=== PATIENT | female | born 1995 | race American Indian/Alaskan Native ===

== ENCOUNTER 2018-06-03 09:32 | Emergency (ER) | payer MEDICAID ==
[2018-06-03 09:42] VITALS: BP 123/66
[2018-06-03] MEDS ORDERED: IBUPROFEN PO ONE (10:09)
--- NOTE | 2018-06-03 10:38 | XRay Report ---
ROUTINE CHEST, TWO VIEWS: HISTORY: Cough. The trachea, heart, mediastinal contour, lung kaba and bony thorax are unremarkable. IMPRESSION: Unremarkable chest x-ray.
--- NOTE | 2018-06-03 10:47 | Emergency Department Report ---
Upper Respiratory HPI - HPI Chief Complaint: Upper Respiratory Infection Stated Complaint: FAUSTINO/HANDS NUMB/ Time Seen by Provider: 06/03/18 10:01 Duration: 1 Day URI Symptoms: Rhinorrhea: Yes, Sore Throat: No, Ear Pain: No, Cough: Yes, Shortness of Breath: No, Sick Contacts: No, Unable to Take Fluids: No, Urine Output Abnormal: No, Listless Behavior: No Other History: This is a 22-year-old female nontoxic, well nourished in appearance, no acute signs of distress presents to the ED with c/o of productive cough, fever, chills, body aches, rhinorrhea, nasal congestion x1 day. Patient describes productive cough as yellow mucus production. Patient agrees to sick contact with cousin which has the flu. Patient denies any recent travels, long car, recent hospital stays. Patient denies any calf pain or calf tenderness. Patient denies any chest pain, short of breath, nausea, vomiting, hemoptysis, numbness, tingling, headache or stiff neck. Patient denies any allergies or PMH. - Home Meds and Allergies Home Medications: Previous Rx's Medication Instructions Recorded Last Taken Type Cefdinir 300 mg PO Q12HR #20 capsule 04/16/14 Unknown Rx HYDROcodone/ACETAMINOPHEN 1 each PO Q4HR PRN #14 tablet 04/16/14 Unknown Rx [Hydrocodon-Acetaminophen 5-325] predniSONE [Prednisone] 40 mg PO DAILY #10 tablet 04/16/14 Unknown Rx HYDROcodone/APAP 5-325 [[place] 1 each PO Q8H PRN #10 tablet 11/16/14 Unknown Rx 5/325] Hydrocortisone 2.5% [Hytone 2.5% 1 applicatio TP TID #30 gm 11/16/14 Unknown Rx CREAM] cephALEXin [Keflex] 500 mg PO Q8H #21 capsule 11/16/14 Unknown Rx metroNIDAZOLE [Metrogel] 60 gm TP BID #1 gel..gram. 12/02/14 Unknown Rx Nitrofurantoin [place]/M-Cryst 100 mg PO Q12HR #14 capsule 12/15/14 Unknown Rx [Macrobid CAP] Pnv95/Ferrous Fumarate/FA 1 each PO QDAY #90 tablet 12/15/14 Unknown Rx [ Formula Tablet] Promethazine [Phenergan TAB] 25 mg PO Q6H PRN #30 tablet 12/15/14 Unknown Rx Vit-Fe Fumar-FA [ 1 tab PO QDAY #90 tablet 02/03/15 2 Days Ago Rx Vitamin] ~07/17/15 Promethazine [Phenergan TAB] 25 mg PO Q6HR PRN #20 tab 02/03/15 Unknown Rx cephALEXin [Keflex] 500 mg PO Q6HR #28 capsule 02/03/15 Unknown Rx metroNIDAZOLE 0.75%(NF) [Metrogel 1 applicatio TP QHS #5 tube 02/03/15 Unknown Rx 0.75% TOPICAL] Docusate Sodium [Colace] 100 mg PO DAILY #30 capsule 07/18/15 Unknown Rx Ferrous Sulfate [Feosol 325 MG tab] 325 mg PO BID #90 tablet 07/18/15 Unknown Rx Ibuprofen [Motrin 800 MG tab] 800 mg PO TID PRN #30 tablet 07/18/15 Unknown Rx Lidocain2.5%/Prilocai2.5% [Emla] 5 gm TP ONCE #1 tube 07/18/15 Unknown Rx oxyCODONE /ACETAMINOPHEN [Percocet 1 - 2 tab PO Q4HR PRN #30 tablet 07/18/15 Unknown Rx 5/325 mg] Ibuprofen [Motrin] 600 mg PO Q8H PRN #20 tablet 06/03/18 Unknown Rx Oseltamivir [Tamiflu] 75 mg PO BID #10 cap 06/03/18 Unknown Rx Allergies/Adverse Reactions: Allergies Allergy/AdvReac Type Severity Reaction Status Date / Time No Known Allergies Allergy Unverified 05/30/13 14:28 ED Review of Systems ROS: Stated complaint: FAUSTINO/HANDS NUMB/ Other details as noted in HPI Constitutional: chills, fever Eyes: denies: eye pain, eye discharge, vision change ENT: congestion. denies: ear pain, throat pain Respiratory: cough. denies: shortness of breath, wheezing Cardiovascular: denies: chest pain, palpitations Endocrine: no symptoms reported Gastrointestinal: denies: abdominal pain, nausea, diarrhea Genitourinary: denies: urgency, dysuria, discharge Musculoskeletal: denies: back pain, joint swelling, arthralgia Skin: denies: rash, lesions Neurological: denies: headache, weakness, paresthesias Psychiatric: denies: anxiety, depression Hematological/Lymphatic: denies: easy bleeding, easy bruising ED Past Medical Hx - Past Medical History Previous Medical History?: No Hx Hypertension: No Hx Congestive Heart Failure: No Hx Diabetes: No Hx Deep Vein Thrombosis: No Hx Renal Disease: No Hx Sickle Cell Disease: No Hx Seizures: No Hx Asthma: No Hx HIV: No - Surgical History Past Surgical History?: Yes Additional Surgical History: c-sectionx2 - Social History Smoking Status: Never Smoker Substance Use Type: None - Medications Home Medications: Home Medications Medication Instructions Recorded Confirmed Last Taken Type Cefdinir 300 mg PO Q12HR #20 capsule 04/16/14 07/19/15 Unknown Rx HYDROcodone/ACETAMINOPHEN 1 each PO Q4HR PRN #14 tablet 04/16/14 07/19/15 Unknown Rx [Hydrocodon-Acetaminophen 5-325] predniSONE [Prednisone] 40 mg PO DAILY #10 tablet 04/16/14 07/19/15 Unknown Rx HYDROcodone/APAP 5-325 [[place] 1 each PO Q8H PRN #10 tablet 11/16/14 07/19/15 Unknown Rx 5/325] Hydrocortisone 2.5% [Hytone 2.5% 1 applicatio TP TID #30 gm 11/16/14 07/19/15 Unknown Rx CREAM] cephALEXin [Keflex] 500 mg PO Q8H #21 capsule 11/16/14 07/19/15 Unknown Rx metroNIDAZOLE [Metrogel] 60 gm TP BID #1 gel..gram. 12/02/14 07/19/15 Unknown Rx Nitrofurantoin [place]/M-Cryst 100 mg PO Q12HR #14 capsule 12/15/14 07/19/15 Unknown Rx [Macrobid CAP] Pnv95/Ferrous Fumarate/FA 1 each PO QDAY #90 tablet 12/15/14 07/19/15 Unknown Rx [ Formula Tablet] Promethazine [Phenergan TAB] 25 mg PO Q6H PRN #30 tablet 12/15/14 07/19/15 Unknown Rx Vit-Fe Fumar-FA [ 1 tab PO QDAY #90 tablet 02/03/15 07/19/15 2 Days Ago Rx Vitamin] ~07/17/15 Promethazine [Phenergan TAB] 25 mg PO Q6HR PRN #20 tab 02/03/15 07/19/15 Unknown Rx cephALEXin [Keflex] 500 mg PO Q6HR #28 capsule 02/03/15 07/19/15 Unknown Rx metroNIDAZOLE 0.75%(NF) [Metrogel 1 applicatio TP QHS #5 tube 02/03/15 07/19/15 Unknown Rx 0.75% TOPICAL] Docusate Sodium [Colace] 100 mg PO DAILY #30 capsule 07/18/15 Unknown Rx Ferrous Sulfate [Feosol 325 MG tab] 325 mg PO BID #90 tablet 07/18/15 Unknown Rx Ibuprofen [Motrin 800 MG tab] 800 mg PO TID PRN #30 tablet 07/18/15 Unknown Rx Lidocain2.5%/Prilocai2.5% [Emla] 5 gm TP ONCE #1 tube 07/18/15 Unknown Rx oxyCODONE /ACETAMINOPHEN [Percocet 1 - 2 tab PO Q4HR PRN #30 tablet 07/18/15 Unknown Rx 5/325 mg] Ibuprofen [Motrin] 600 mg PO Q8H PRN #20 tablet 06/03/18 Unknown Rx Oseltamivir [Tamiflu] 75 mg PO BID #10 cap 06/03/18 Unknown Rx ED Bronchiolitis Physical Exam - Exam General: Vital signs noted. No distress. Alert and acting appropriately. Neurologic: Alert and oriented, no deficits. Musculoskeletal: Unremarkable. ED Bronchiolitis Tests - Testing Testing: CXR: Normal/Negative ED Physical Exam - General Limitations: No Limitations General appearance: alert, in no apparent distress - Head Head exam: Present: atraumatic, normocephalic - Eye Eye exam: Present: normal appearance - ENT ENT exam: Present: normal exam, normal orophraynx - Neck Neck exam: Present: normal inspection, full ROM. Absent: tenderness, meningismus, lymphadenopathy - Respiratory Respiratory exam: Present: normal lung sounds bilaterally. Absent: respiratory distress, wheezes, rales, rhonchi, stridor, chest wall tenderness, accessory muscle use, decreased breath sounds, prolonged expiratory - Cardiovascular Cardiovascular Exam: Present: regular rate, normal rhythm, normal heart sounds. Absent: irregular rhythm, systolic murmur, diastolic murmur, rubs, gallop - Extremities Exam Extremities exam: Present: normal inspection, full ROM - Back Exam Back exam: Present: normal inspection, full ROM - Neurological Exam Neurological exam: Present: alert, oriented X3, normal gait - Psychiatric Psychiatric exam: Present: normal affect, normal mood - Skin Skin exam: Present: warm, dry, intact, normal color. Absent: rash ED Course Vital Signs 06/03/18 09:40 Temperature 99.3 F Pulse Rate 99 H Respiratory 18 Rate Blood Pressure 123/66 O2 Sat by Pulse 99 Oximetry - Reevaluation(s) Reevaluation #1: 06/03/18 10:45 Patient is speaking in full sentences with no signs of distress noted. ED Medical Decision Making - Medical Decision Making This is a 22-year-old female that presents with influenza. Patient is stable and was examined by me. Symptoms area consistent with the flu. Chest x-ray has been obtained and dictated by radiologist with normal exam. Patient is notified of x-ray results with no questions noted. Patient will be discharged with Tamiflu. Patient was instructed to increase hydration, rest and take Motrin for fever episodes. Patient received motrin in the ED. Vitals stable. Patient is nonfebrile and normal heart rate. Patient was instructed Follow-up with a primary care doctor in 3-5 days or if symptoms worsen and continue return to emergency room as soon as possible. At time time of discharge, the patient does not seem toxic or ill in appearance. No acute signs of distress noted. Patient agrees to discharge treatment plan of care. No further questions noted by the patient. Critical care attestation.: If time is entered above; I have spent that time in minutes in the direct care of this critically ill patient, excluding procedure time. ED Disposition Clinical Impression: Influenza Disposition: DC-01 TO HOME OR SELFCARE Is pt being admited?: No Does the pt Need Aspirin: No Condition: Stable Instructions: Influenza (ED) Additional Instructions: Follow-up with a primary care doctor in 3-5 days or if symptoms worsen and c ontinue return to emergency room as soon as possible. Increased rest, hydration, and take Motrin for fever episodes as prescribed. Prescriptions: Ibuprofen [Motrin] 600 mg PO Q8H PRN #20 tablet PRN Reason: Pain/Fever Oseltamivir [Tamiflu] 75 mg PO BID #10 cap Referrals: RONAK MEAD MD [Primary Care Provider] - 3-5 Days PRINCESS JACOME MD [Staff Physician] - 3-5 Days [facility] [Outside] - 3-5 Days [facility] [Outside] - 3-5 Days Forms: Work/School Release Form(ED)
== END 2018-06-03 10:51 | disposition home or self-care (01) ==
LOC: ED 09:32
DX: J11.1 Influenza due to unidentified influenza virus with other respiratory manifestations (principal)
CPT/HCPCS: 71046